=== PATIENT | female | born 1975 | race Caucasian/White ===

== ENCOUNTER 2017-07-28 20:45 | Emergency (ER) | payer MEDICAID ==
--- NOTE | ~2017-07-28 | ER ---
PATIENT'S NAME: ZION RAMEY [facility] AGE: 42 Y [address] ROOM: [place] [address] LOCATION: [facility] ADMIT DATE: 07/28/2017 ER/Outpatient Report DISCHARGE DATE: 07/28/2017 FAMILY PHYSICIAN: Physician, Unknown ATTENDING PHYSICIAN: Daniel Olson Time of Arrival: 4 hours. Time of Evaluation: 2044 hours. CHIEF COMPLAINT: Difficulty breathing. HISTORY OF PRESENT ILLNESS: The patient is a 42-year-old female, who presents to the emergency department today with a chief complaint of difficulty breathing. She reports this started this morning. She denies any fevers or chills. No chest pain. No cough. She does feel like she is wheezing. She does feel like this is her previous asthma. Denies any history of PE or DVT in the past. PAST MEDICAL HISTORY: Depression, anxiety, asthma, hypertension. PAST SURGICAL HISTORY: [place] removed from pinky toe. SOCIAL HISTORY: The patient smokes half a pack per day. Drinks alcohol socially. Denies any illicit drug use. ALLERGIES: NO KNOWN DRUG ALLERGIES. MEDICATIONS: Please see list. PRIMARY CARE DOCTOR: Dr. Russo. REVIEW OF SYSTEMS: All systems are reviewed by myself and are negative with the exception of those discussed in the HPI and past medical history. PHYSICAL EXAMINATION: VITAL SIGNS: Weight 140.4 kg, blood pressure 159/65, pulse 111, respiratory rate 18, temperature 98.8, oxygen saturation 92% on room air. PATIENT'S NAME: ZION RAMEY [facility] AGE: 42 Y [address] ROOM: [place] [address] LOCATION: [facility] ADMIT DATE: 07/28/2017 ER/Outpatient Report DISCHARGE DATE: 07/28/2017 FAMILY PHYSICIAN: Physician, Unknown ATTENDING PHYSICIAN: Daniel Olson GENERAL: The patient is a 42-year-old female, who appears stated age, in mild acute respiratory distress, obese. HEENT: Head: Normocephalic, atraumatic. Pupils are equal, round, and reactive to light. Nares with clear discharge bilaterally. TMs are clear. Oropharynx is clear. NECK: Supple. There is no nuchal rigidity. CARDIOVASCULAR: Tachycardic. No murmurs, rubs, or gallops. LUNGS: Diminished diffusely with expiratory wheezes noted, in mild respiratory distress. ABDOMEN: Soft, nontender, and nondistended. No rebound, rigidity, or guarding. MUSCULOSKELETAL: The patient moves all 4 extremities. SKIN: Warm and dry. There are no rashes or lesions noted. LABORATORY DATA AND X-RAYS: Two-view chest x-ray was obtained, is interpreted by myself shows no acute infiltrate or opacity, no acute cardiopulmonary process. Further over-read by Radiology is pending. CBC is unremarkable. D-dimer is normal. CMP is unremarkable. LFTs are normal. ProBNP is 241. IMPRESSION: 1. Acute exacerbation of asthma. 2. Tobacco abuse. 3. Initial visit. EMERGENCY DEPARTMENT COURSE: The patient was brought back to the examination room. Seen and evaluated by myself. IV and laboratory analysis are obtained as described above. The patient was given 125 mg of Solu-Medrol IV. She was given 2 DuoNeb breathing treatments with improvement in the patient's symptoms. I have discussed results with the patient. She feels much improved at this time. I have written a prescription for prednisone, albuterol, and doxycycline. I have discussed follow up with Dr. Russo in 2 to 3 days for re-evaluation. I have discussed return to care instructions including worsening symptoms or any other concerns to return to the emergency department as soon as possible. The patient was also written for nebulizer machine as well as albuterol inhaler HFA. DISPOSITION: The patient discharged home in good condition. PATIENT'S NAME: ZION RAMEY [facility] AGE: 42 Y [address] ROOM: [place] [address] LOCATION: [facility] ADMIT DATE: 07/28/2017 ER/Outpatient Report DISCHARGE DATE: 07/28/2017 FAMILY PHYSICIAN: Physician, Unknown ATTENDING PHYSICIAN: Daniel Olson DO CASIE SIERRA/zenon /[id number] d: 07/29/17 0151 t: 07/29/17 2306, OUTPATIENT REPORT
[2017-07-28 21:04] LABS: BASOPHIL % 0.5 %; EOSINOPHIL # 0.3 K/uL (0.0-0.5); EOSINOPHIL % 4.7 %; HEMATOCRIT 39.9 % (33.0-46.0); HEMOGLOBIN 12.6 g/dL (10.0-15.0); IMMATURE GRANULOCYTE % 0.2 %; LYMPHOCYTE # 1.3 K/uL (0.8-4.0); LYMPHOCYTE % 19.8 %; MCH 27.3 pg (27.0-34.0); MCHC 31.6 gm/dL (32.0-36.5); MCV 86.6 fl (83.0-98.0); MONOCYTE # 0.6 K/uL (0.0-1.0); MONOCYTE % 8.9 %; MPV 10.9 fl (9.4-12.4); NEUTROPHIL # (ANC) 4.2 K/uL (1.8-7.8); NEUTROPHIL % 65.9 %; NRBC % 0 /100WBC (0-0.00); PLATELET COUNT 285 K/uL (150-450); RBC 4.61 M/uL (3.50-5.50); RDW-CV 14.6 % (11.9-14.6); WBC 6.4 K/uL (4.0-11.0)
[2017-07-28 21:21] LABS: ALBUMIN 3.5 gm/dL (3.5-5.0); ANION GAP 7.6 (10.0-19.0); CALCIUM 8.6 mg/dL (8.5-10.5); POTASSIUM 3.6 mMol/L (3.7-5.1); TOTAL BILIRUBIN 0.2 mg/dL (0.0-1.5); TOTAL PROTEIN 7.8 g/dL (6.0-8.4)
== END 2017-07-28 21:42 | disposition disaster alternative care site (69) ==
LOC: GMED 20:45
PROVIDERS: Emergency Medicine
DX: J45.901 Unspecified asthma with (acute) exacerbation (principal); F41.9 Anxiety disorder, unspecified; F17.210 Nicotine dependence, cigarettes, uncomplicated; F32.9 Major depressive disorder, single episode, unspecified; J45.909 Unspecified asthma, uncomplicated; I10 Essential (primary) hypertension
CPT/HCPCS: J2930